=== PATIENT | female | born 1990 | race Caucasian/White ===

== ENCOUNTER 2018-06-26 01:31 | Inpatient (IN) | payer MEDICAID ==
[~2018-06-26] VITALS: Ht 157.5 cm; Wt 99.8 kg
[2018-06-26] MEDS ORDERED: DEXT 5%/LR + PITOCIN 20UNITS/L 1,000 ML IV SCH ×2 (02:24→14:20)
[2018-06-26] MEDS ORDERED: NALOXONE HCL 0.4 MG/ML 1ML VIAL IM PRN (02:30)
[2018-06-26] MEDS ORDERED: METHYLERGONOVINE MALEATE 0.2 MG/ML IM PRN (02:30)
[2018-06-26] MEDS ORDERED: LIDOCAINE HCL 1% 20ML VIAL (Pyxis) INJ INFIL SCH (02:30)
[2018-06-26] MEDS ORDERED: BUTORPHANOL TARTRATE 2 MG/ML VIAL IV PRN (02:30)
[2018-06-26] MEDS ORDERED: CARBOPROST TROMETHAMINE 250 MCG/ML AMPUL IM PRN (02:30)
[2018-06-26] MEDS ORDERED: MISOPROSTOL 100MCG TABLET VG SCH (02:30)
[2018-06-26 03:02] LABS: BASOPHILS % 0.3 % (0.0-2.0); EOSINOPHILS % 1.4 % (0.0-5.0); HEMOGLOBIN. 11.1 g/dL (12.0-16.0); LYMPHOCYTES % 23.3 % (20.0-50.0); MEAN CORPUSCULAR HEMOGLOBIN 27.4 pg (28.0-32.0); MEAN CORPUSCULAR VOLUME 81.3 fL (81.0-99.0); MEAN PLATELET VOLUME 9.9 fl (7.4-10.4); MONOCYTES % 6.1 % (2.0-8.0); NEUTROPHILS % 68.9 % (40.0-76.0); PLATELET 226 x1000/uL (130-400); RED BLOOD CELL COUNT 4.06 mill/uL (4.2-5.4); RED CELL DISTRIBUTION WIDTH 14.9 % (11.6-14.6)
[2018-06-26 03:25] LABS: INR 0.9; PROTHROMBIN TIME 9.4 sec (9.1-11.1)
[2018-06-26] MEDS: LACTATED RINGERS 1,000 ML IV SCH ×4 (03:30→12:22)
[2018-06-26 04:18] LABS: HEPATITIS B SURFACE ANTIGEN NEGATIVE
[2018-06-26 05:30] LABS: CLARITY URINE CLEAR (CLEAR); COLOR URINE YELLOW (YELLOW); KETONES URINE NEGATIVE (NEGATIVE); LEUKOCYTE ESTERASE URINE NEGATIVE (NEGATIVE); NITRITE URINE NEGATIVE (NEGATIVE); OCCULT BLOOD URINE NEGATIVE (NEGATIVE); PH URINE 6.5 (4.5-8.0); PROTEIN URINE NEGATIVE (NEGATIVE); SPECIFIC GRAVITY URINE 1.021 (1.005-1.030)
[2018-06-26 05:45] LABS: *AMPHETAMINES SCREEN URINE NEGATIVE (NEGATIVE); *BARBITURATES SCREEN URINE NEGATIVE (NEGATIVE)
[2018-06-26 05:46] LABS: *BENZODIAZEPINES SCREEN URINE NEGATIVE (NEGATIVE); *COCAINE SCREEN URINE NEGATIVE (NEGATIVE); CANNABINOID URINE SCREEN NEGATIVE (NEGATIVE); METHADONE URINE SCREEN NEGATIVE (NEGATIVE); OPIATES URINE SCREEN NEGATIVE (NEGATIVE); PHENCYCLIDINE URINE SCREEN NEGATIVE (NEGATIVE)
[2018-06-26] MEDS ORDERED: SODIUM CHLORIDE 0.9% 10ML VIAL ONE (06:13)
[2018-06-26] MEDS ORDERED: EPHEDRINE SULFATE 50MG/ML VIAL ONE (06:13)
[2018-06-26] MEDS ORDERED: FENTANYL CITRATE/PF 50MCG/ML 2ML VIAL ONE ×2 (06:14→12:20)
[2018-06-26] MEDS ORDERED: BUPIVACAINE HCL/PF 0.25% (2.5MG/ML) 10ML ONE (06:14)
[2018-06-26] MEDS ORDERED: BUPIVACAINE HCL/NS/PF EPIDURAL 100 ML EP ONE (06:14)
[2018-06-26] MEDS ORDERED: CITRIC ACID/SODIUM CITRATE SOLN 30ML UDC PO SCH (06:15)
[2018-06-26] MEDS ORDERED: LIDOCAINE HCL/PF 2% 20MG/ML 5 ML/VIAL ONE ×2 (12:20→13:34)
[2018-06-26] MEDS ORDERED: LIDOCAINE HCL/PF 1% 10 MG/ML 5ML VIAL ONE (13:51)
[2018-06-26] MEDS ORDERED: RHO(D) IMMUNE GLOBULIN 300 MCG/SYR IM PRN (14:30)
[2018-06-26] MEDS ORDERED: IBUPROFEN 400MG TABLET PO PRN (14:30)
[2018-06-26] MEDS ORDERED: BENZOCAINE/LANOLIN/ALOE VERA SPRAY TOP PRN (14:30)
[2018-06-26] MEDS: IBUPROFEN 800MG TABLET PO PRN ×2 (15:16→23:05)
[2018-06-26 16:05] VITALS: BP 110/61
[2018-06-26 16:35] VITALS: BP 107/55
[2018-06-26 17:35] VITALS: BP 103/61
[2018-06-26] MEDS: ACETAMINOPHEN WITH CODEINE 300/30MG TABLET PO PRN (17:57)
[2018-06-26 20:10] VITALS: BP 115/72
[2018-06-27 04:15] VITALS: BP 100/66
[2018-06-27 08:16] VITALS: BP 110/66
[2018-06-27 11:44] LABS: BASOPHILS % 0.5 % (0.0-2.0); EOSINOPHILS % 1.5 % (0.0-5.0); HEMOGLOBIN. 10.4 g/dL (12.0-16.0); LYMPHOCYTES % 19.4 % (20.0-50.0); MEAN CORPUSCULAR HEMOGLOBIN 27.3 pg (28.0-32.0); MEAN CORPUSCULAR VOLUME 81.3 fL (81.0-99.0); MEAN PLATELET VOLUME 9.3 fl (7.4-10.4); MONOCYTES % 4.2 % (2.0-8.0); NEUTROPHILS % 74.4 % (40.0-76.0); PLATELET 195 x1000/uL (130-400); RED BLOOD CELL COUNT 3.82 mill/uL (4.2-5.4); RED CELL DISTRIBUTION WIDTH 14.7 % (11.6-14.6)
[2018-06-27] MEDS: ACETAMINOPHEN WITH CODEINE 300/30MG TABLET PO PRN (11:56)
[2018-06-27 15:30] VITALS: BP 120/61
[2018-06-27] MEDS: IBUPROFEN 800MG TABLET PO PRN (16:41)
[2018-06-27 19:50] VITALS: BP 94/63
[2018-06-28] MEDS: IBUPROFEN 800MG TABLET PO PRN ×2 (02:28→08:46)
[2018-06-28 05:00] VITALS: BP 96/56
[2018-06-28 08:19] VITALS: BP 98/62
[2018-06-28] MEDS ORDERED: TETANUS, DIPHTHERIA, PERTUSSIS VAC/PF 0.5ML (>7YR OLD) IM ONE (09:00)
== END 2018-06-28 14:30 | disposition home or self-care (01) | DRG 560 ==
LOC: OBSVTOIN 01:31 → L&D 01:31 → 7EST PP/OB 16:00
PROVIDERS: ADMIT Obstetrics & Gynecology; ATTEND Obstetrics & Gynecology
PROC: 10D07Z6 Extraction of Products of Conception, Vacuum, Via Natural or Artificial Opening (ICD-10-PCS; principal; 2018-06-27)
PROC: 0KQM0ZZ Repair Perineum Muscle, Open Approach (ICD-10-PCS; 2018-06-27)
DX: O70.1 Second degree perineal laceration during delivery (principal); D64.9 Anemia, unspecified; Z37.0 Single live birth; O99.02 Anemia complicating childbirth; Z3A.40 40 weeks gestation of pregnancy; Z88.0 Allergy status to penicillin; O99.214 Obesity complicating childbirth
CPT/HCPCS: 36415; 80305; 86592; 86703; 86762; 86850; 86900; 87340; 90715; A4216; J2590; J3010; J3490; A4315

== ENCOUNTER 2022-07-06 17:44 | Inpatient (IN) | payer MEDICAID ==
[~2022-07-06] VITALS: Ht 160 cm; Wt 110.7 kg
[2022-07-06] MEDS ORDERED: FERR324T11 PO (20:36)
[2022-07-06] MEDS ORDERED: PNV1TABL76 PO (20:36)
[2022-07-06 21:40] LABS: CLARITY URINE CLOUDY (CLEAR); COLOR URINE YELLOW (YELLOW); KETONES URINE 1+ (NEGATIVE); LEUKOCYTE ESTERASE URINE NEGATIVE (NEGATIVE); NITRITE URINE NEGATIVE (NEGATIVE); OCCULT BLOOD URINE NEGATIVE (NEGATIVE); PROTEIN URINE TRACE (NEGATIVE); SPECIFIC GRAVITY URINE 1.021 (1.005-1.030)
[2022-07-06] MEDS ORDERED: METHYLERGONOVINE MALEATE 0.2 MG/ML IM PRN (22:45)
[2022-07-06] MEDS ORDERED: CARBOPROST TROMETHAMINE 250 MCG/ML AMPUL IM PRN (22:45)
[2022-07-06] MEDS ORDERED: BUTORPHANOL TARTRATE 2 MG/ML VIAL IV PRN (22:45)
[2022-07-06] MEDS ORDERED: LIDOCAINE HCL 1% 20ML VIAL (Pyxis) INJ INFIL SCH (22:45)
[2022-07-06] MEDS ORDERED: MISOPROSTOL 100MCG TABLET VG SCH (22:45)
[2022-07-06] MEDS ORDERED: OXYTOCIN 30 UNITS/500ML NS PMX 500 ML IV SCH (22:45)
[2022-07-06] MEDS ORDERED: NALOXONE HCL 0.4 MG/ML 1ML VIAL IM PRN (22:45)
[2022-07-06] MEDS ORDERED: CEFAZOLIN 2,000 MG in DEXT 5% WATER 100 ML IV SCH (23:00)
[2022-07-06] MEDS: LACTATED RINGERS 1,000 ML IV SCH (23:22)
[2022-07-07 00:01] LABS: BASOPHILS % 0.2 % (0.0-2.0); EOSINOPHILS % 0.4 % (0.0-5.0); HEMATOCRIT. 32.9 % (36.0-48.0); HEMOGLOBIN. 10.7 g/dL (12.0-16.0); LYMPHOCYTES % 14.6 % (20.0-50.0); MEAN CORPUSCULAR HEMOGLOBIN 25.1 pg (28.0-32.0); MEAN PLATELET VOLUME 10.1 fl (7.4-10.4); MONOCYTES % 4.1 % (2.0-8.0); NEUTROPHILS % 80.7 % (40.0-76.0); PLATELET 188 x1000/uL (130-400); RED BLOOD CELL COUNT 4.27 mill/uL (4.2-5.4); RED CELL DISTRIBUTION WIDTH 14.9 % (11.6-14.6)
[2022-07-07] MEDS: LACTATED RINGERS 1,000 ML IV SCH ×2 (00:07→02:21)
[2022-07-07 00:12] LABS: INR 0.9; PROTHROMBIN TIME 9.8 sec (9.6-11.0)
[2022-07-07 00:34] LABS: HEPATITIS B SURFACE ANTIGEN NEGATIVE
[2022-07-07] MEDS ORDERED: ROPIVACAINE HCL/PF EPIDURAL 200 ML EPI SCH (02:00)
[2022-07-07] MEDS ORDERED: DEXT 5%/LACTATED RINGERS 1,000 ML IV SCH (02:15)
[2022-07-07] MEDS ORDERED: IBUPROFEN 400MG TABLET PO PRN (06:15)
[2022-07-07] MEDS ORDERED: BENZOCAINE/LANOLIN/ALOE VERA SPRAY TOP PRN (06:15)
[2022-07-07] MEDS ORDERED: CEFAZOLIN 1000MG PREMIX 50 ML IV SCH (07:00)
[2022-07-07] MEDS: IBUPROFEN 800MG TABLET PO PRN ×2 (08:42→14:26)
[2022-07-07 10:15] VITALS: BP 112/57
[2022-07-07 15:51] VITALS: BP 119/78
[2022-07-07 21:58] VITALS: BP 100/57
[2022-07-08 04:00] VITALS: BP 124/90
[2022-07-08] MEDS: IBUPROFEN 800MG TABLET PO PRN (04:21)
[2022-07-08 06:41] LABS: BASOPHILS % 0.4 % (0.0-2.0); EOSINOPHILS % 3.4 % (0.0-5.0); HEMATOCRIT. 30.3 % (36.0-48.0); LYMPHOCYTES % 28.8 % (20.0-50.0); MEAN CORPUSCULAR HEMOGLOBIN 25.5 pg (28.0-32.0); MEAN CORPUSCULAR VOLUME 77.2 fL (81.0-99.0); MEAN PLATELET VOLUME 9.8 fl (7.4-10.4); MONOCYTES % 6.6 % (2.0-8.0); NEUTROPHILS % 60.8 % (40.0-76.0); PLATELET 185 x1000/uL (130-400); RED BLOOD CELL COUNT 3.92 mill/uL (4.2-5.4); RED CELL DISTRIBUTION WIDTH 15.3 % (11.6-14.6)
[2022-07-08 08:00] VITALS: BP 103/40
== END 2022-07-08 12:20 | disposition home or self-care (01) | DRG 560 ==
LOC: OBSVTOIN 17:44 → 8 EST LDRP 17:44 → 8EST 07-07 14:43
PROVIDERS: ADMIT Obstetrics & Gynecology; ATTEND Obstetrics & Gynecology
PROC: 10D07Z6 Extraction of Products of Conception, Vacuum, Via Natural or Artificial Opening (ICD-10-PCS; principal; 2022-07-07)
PROC: 0KQM0ZZ Repair Perineum Muscle, Open Approach (ICD-10-PCS; 2022-07-07)
PROC: 3E0R3BZ Introduction of Anesthetic Agent into Spinal Canal, Percutaneous Approach (ICD-10-PCS; 2022-07-07)
PROC: 00HU33Z Insertion of Infusion Device into Spinal Canal, Percutaneous Approach (ICD-10-PCS; 2022-07-07)
DX: O48.0 Post-term pregnancy (principal); Z37.0 Single live birth; O41.03X0 Oligohydramnios, third trimester, not applicable or unspecified; K76.0 Fatty (change of) liver, not elsewhere classified; Z20.822 Contact with and (suspected) exposure to COVID-19; O70.1 Second degree perineal laceration during delivery; O77.0 Labor and delivery complicated by meconium in amniotic fluid; O26.62 Liver and biliary tract disorders in childbirth; Z3A.40 40 weeks gestation of pregnancy
CPT/HCPCS: 36415; 76805; 76818; 81003; 85025; 86592; 86703; 86762; 86850; 86900; 87340; 87426; 99281; G0378; J0690; J2795; J7060; A4315; J2590